=== PATIENT | male | born 1985 | race Caucasian/White ===

== ENCOUNTER 2020-03-02 21:47 | Emergency (ER) | payer BC ==
[~2020-03-02] VITALS: Ht 177.8 cm; Wt 92.9 kg
[2020-03-02 22:18] VITALS: BP 140/88
--- NOTE | 2020-03-02 22:39 | PHYS DOC ---
Past Medical History Past Medical History: No Pertinent History (YUE PRABHAKAR APRN) Past Surgical History: Other Additional Past Surgical Histo: LEFT FOOT SURGERY - BONE FRAGMENT REMOVED (YUE PRABHAKAR APRN) Smoking Status: Never Smoker Alcohol Use: Occasionally (YUE PRABHAKAR APRN) General Adult EDM: Chief Complaint: UPPER EXTREMITY PAIN HPI: HPI: Patient is a 34 year old male who presents the ED today concerned he tore his right biceps. Patient reports playing basketball and believes his right biceps was torn up during the game. (YUE PRABHAKAR APRN) Review of Systems: Review of Systems: Constitutional: Denies fever or chills. [] Musculoskeletal: Right biceps injury Integument: Denies rash. [] Neurologic: Denies headache, focal weakness or sensory changes. [] Psychiatric: Denies depression or anxiety. [] (YUE PRABHAKAR APRN) Heart Score: Risk Factors: Risk Factors: DM, Current or recent (<one month) smoker, HTN, HLP, family history of CAD, obesity. Risk Scores: Score 0 - 3: 2.5% MACE over next 6 weeks - Discharge Home Score 4 - 6: 20.3% MACE over next 6 weeks - Admit for Clinical Observation Score 7 - 10: 72.7% MACE over next 6 weeks - Early Invasive Strategies (YUE PRABHAKAR APRN) Allergies: Allergies: Allergies Coded Allergies Type Severity Reaction Last Updated Verified No Known Drug Allergies 09/22/15 No (YUE PRABHAKAR APRN) Physical Exam: PE: Constitutional: Well developed, well nourished, no acute distress, non-toxic appearance. [] Skin: Warm, dry, no erythema, no rash. [] Back: No tenderness, no CVA tenderness. [] Extremities: This is a well muscled man, slight swelling noted over the right bicep. No bruising noted on the right bicep. Tenderness on the right bicep. Full range of motion to the right upper extremity including plantarflexion and dorsiflexion of the right forearm. 5/5 strength to the right upper extremity. Adequate radial, medial, ulnar sensation to the right upper extremity. Neurologic: Alert and oriented X 3, normal motor function, normal sensory function, no focal deficits noted. [] Psychologic: Affect normal, judgement normal, mood normal. [] (YUE PRABHAKAR APRN) Current Patient Data: Vital Signs: Vital Signs Date Time Temp Pulse Resp B/P (MAP) Pulse Ox O2 Delivery O2 Flow Rate FiO2 03/02/20 22:18 84 18 140/88 (105) 99 Room Air (YUE PRABHAKAR APRN) EKG: EKG: [] (YUE PRABHAKAR APRN) Radiology/Procedures: Radiology/Procedures: [] (YUE PRABHAKAR APRN) Course & Med Decision Making: Course & Med Decision Making Pertinent Labs and Imaging studies reviewed. (See chart for details) This is a 34-year-old male patient presenting to the ED today with right biceps pain and concern he tore up his right biceps playing basketball. Patient does not normal function to the right upper extremity. He is well muscled. Spoke with -he requested patient to be discharged and to follow-up with him in the clinic by calling his office tomorrow morning. Patient was also adv ised to ice and elevate the extremity. Anti-inflammatories recommended. (YUE PRABHAKAR APRN) Course & Med Decision Making I have reviewed the PA/STAFF ANESTHESIOLOGIST's note and Plan of Care. I was available for consultation as needed during the patient's visit in the emergency department. I agree with the clinical impression, plans and disposition. (JOSE MARIA MARMOLEJO MD) Dragon Disclaimer: Dragon Disclaimer: This electronic medical record was generated, in whole or in part, using a voice recognition dictation system. (YUE PRABHAKAR APRN) Departure Departure Impression: Primary Impression: Upper extremity pain Qualified Codes: M79.601 - Pain in right arm Disposition: HOME, SELF-CARE Condition: STABLE Referrals: NO PCP (PCP) TERRANCE GARCIA MD Please call his office in the morning and set up a follow up appointment Patient Instructions: Musculoskeletal Pain Additional Instructions: Please ice and elevate the extremity Please do not lift, push or pull anything greater than a gallon of milk with your right upper extremity Take over the counter medications especially anti inflammatories like Ibuprofen as needed for pain Justicifation of Admission Dx: Justifications for Admission: Justification of Admission Dx: N/A (YUE PRABHAKAR APRN) YUE PRABHAKAR APRN Mar 02, 2020 22:39 JOSE MARIA MARMOLEJO MD Mar 02, 2020 22:54
== END 2020-03-02 22:59 | disposition home or self-care (01) ==
LOC: ER 21:47
DX: M79.601 Pain in right arm (principal); R60.0 Localized edema; R20.2 Paresthesia of skin; Z98.890 Other specified postprocedural states
CPT/HCPCS: 99282